=== PATIENT | female | born 1990 | race Caucasian/White ===

== ENCOUNTER 2021-04-22 12:29 | Inpatient (IN) ==
[2021-04-22] MEDS ORDERED: OXYTOCIN 30 UNITS/500 ML BAG IV PRN ×3 (13:26→19:46)
[2021-04-22 14:13] LABS: Hematocrit (blood only) 31.1 % (37-47); Hemoglobin 10.1 g/dL (12.0-16.0); Mean Corpuscular Hemoglobin 29.5 pg (25-34); Mean Corpuscular Hgb Conc 32.5 g/dL (32-36); Mean Corpuscular Volume 90.9 fL (80-100); Mean Platelet Volume 10.5 fL (7.4-10.4); Platelet Count 268 K/uL (130-400); RDW Coefficient of Variation 12.9 % (11.5-14.5); RDW Standard Deviation 42.8 fL (36.4-46.3); Red Blood Count 3.42 M/uL (4.2-5.4); White Blood Count 10.77 K/uL (4.8-10.8)
[2021-04-22] MEDS: LACTATED RINGER'S 1,000 ML IV PRN ×2 (15:40→17:04)
[2021-04-22] MEDS ORDERED: ePHEDrine sulfate 50 MG/ML AMP ONE (15:46)
[2021-04-22] MEDS ORDERED: SODIUM CHLORIDE 0.9% INJ 10 ML VIAL ONE (15:46)
[2021-04-22] MEDS ORDERED: BUPIVACAINE 0.25% 30 ML VIAL ONE (15:47)
[2021-04-22] MEDS ORDERED: fentaNYL citrate 100 MCG/2 ML VIAL ONE (15:47)
[2021-04-22] MEDS ORDERED: fentaNYL 2MCG/ML ROPIVACAINE 1.25MG/ML 100 ML BAG EPI ONE (15:48)
[2021-04-22] MEDS ORDERED: ePHEDrine sulfate 50 MG/ML AMP IV PRN (16:13)
[2021-04-22] MEDS ORDERED: NALOXONE HCL 1 MG in SODIUM CHLORIDE 0.9% 1000ML 1,000 ML IV PRN (16:13)
[2021-04-22] MEDS ORDERED: ONDANSETRON INJ 2 MG/ML 2 ML VIAL IV PRN (16:13)
[2021-04-22] MEDS ORDERED: fentaNYL 2MCG/ML ROPIVACAINE 1.25MG/ML 100 ML BAG EPI PRN (16:13)
[2021-04-22] MEDS ORDERED: NALOXONE HCL 0.4 MG/1 ML VIAL/CARP IV PRN (16:13)
[2021-04-22] MEDS ORDERED: NALBUPHINE HCL INJ 10 MG/ML AMP IV PRN (16:13)
[2021-04-22] MEDS ORDERED: diphenhydrAMINE 50 MG/ML VIAL IV PRN (16:13)
--- NOTE | 2021-04-22 16:14 | Anesthesiology Consultation ---
Date of Service April 22, 2021 Assessment & Plan (1) Encounter for pre-operative examination: Chart Review Chart Review: Patient NOT seen in Pre Admission Testing and Acceptable Risk for Labor Epidural Consults Requested none History Height/Weight Height: 5 ft 3 in Weight: 68.1 kg Allergies Allergy/AdvReac Type Severity Reaction Status Date / Time Sulfa (Sulfonamide Allergy Hives Verified 04/22/21 13:24 Antibiotics) Medications Home Medications Medication Instructions Recorded Confirmed Last Taken acetaminophen 325 mg tablet 325 mg PO QID PRN 04/22/21 04/22/21 2 Days Ago ~04/20/21 [id number] 1 mg 1 tab PO DAILY 04/22/21 04/22/21 04/16/21 21:00 tablet Active Medications Generic Name Dose Route Start Last Admin Trade Name Freq PRN Reason Stop Dose Admin Lactated Ringer's 1,000 mls @ 125 mls/hr 04/22/21 13:26 04/22/21 15:40 Lr IV 04/24/21 13:25 999 mls/hr .Q8H PRN Administration L&D Protocol Protocol Past Medical History Medical History Cardiac murmur Childhood. Reports no issues. Difficult airway for intubation Past Family History Family History Sister Diabetes mellitus type 1 Cancer Mother Family hx of colon cancer Past Surgical History Surgical History History of laparoscopy Ectopic pregnany. Right fallopian tube removed. Past Anesthesia History No Hx of Anesthesia Complications and No Family Hx of Anesthesia Complications History of PONV No Hx of PONV and No Hx of Motion Sickness Social History Smoking Status: Never smoker Hx Alcohol Use: No Hx Substance Use: No Physical Exam Vital Signs Last Vital Signs Temp 37.1 C 04/22/21 12:38 Pulse 79 04/22/21 16:29 Resp 18 04/22/21 12:38 BP 105/55 L 04/22/21 12:40 Pulse Ox 100 04/22/21 16:29 Testing Laboratory Results 04/22/21 13:56
[2021-04-22] MEDS ORDERED: ACETAMINOPHEN W/CODEINE #3 1 TAB PO PRN (19:46)
[2021-04-22] MEDS ORDERED: oxyCODONE/ACETAMINOPHEN 5mg/325mg TAB PO PRN (19:46)
[2021-04-22] MEDS ORDERED: HYDROCORTISONE ACETATE 25 MG SUPP PR PRN (19:46)
[2021-04-22] MEDS ORDERED: bisacodyL 10 MG SUPP PR PRN (19:46)
[2021-04-22] MEDS ORDERED: SUPERCREAM 0.870% 15 GM JAR EXT PRN (19:46)
[2021-04-22] MEDS ORDERED: DIPHTHERIA/TETANUS/PERTUSSIS 0.5 ML SYR/VIAL IM ONE (19:46)
[2021-04-22] MEDS ORDERED: BENZOCAINE 20% AER SPR 82.5 GM CAN EXT PRN (19:46)
--- NOTE | 2021-04-22 20:17 | Anesthesiology Progress Note ---
Date of Service April 22, 2021 Anesthesia Post Procedure Vital Signs Vital Signs: Temp Pulse Resp BP Pulse Ox 04/22/21 20:14 61 100 04/22/21 20:09 66 98 04/22/21 20:04 59 L 99 04/22/21 19:59 74 99 04/22/21 19:54 66 99 04/22/21 19:49 61 100 04/22/21 19:44 68 97 04/22/21 19:39 61 98 04/22/21 19:34 74 99 04/22/21 19:33 20 04/22/21 19:30 79 85 L 04/22/21 19:29 77 100 04/22/21 19:24 80 100 04/22/21 19:19 78 100 04/22/21 19:14 72 99 04/22/21 19:09 58 L 100 04/22/21 19:04 70 99 04/22/21 18:59 67 99 04/22/21 18:55 75 113/80 04/22/21 18:54 69 97 04/22/21 18:49 64 99 04/22/21 18:44 73 97 04/22/21 18:39 71 97 04/22/21 18:34 69 98 04/22/21 18:29 71 98 04/22/21 18:24 68 98 04/22/21 18:19 66 97 04/22/21 18:14 75 98 04/22/21 18:09 74 98 04/22/21 18:04 66 96 04/22/21 17:59 69 98 04/22/21 17:58 36.6 C 16 108/72 04/22/21 17:54 74 98 04/22/21 17:49 67 99 04/22/21 17:44 61 98 04/22/21 17:39 63 99 04/22/21 17:34 71 98 04/22/21 17:29 71 98 04/22/21 17:24 65 113/67 98 04/22/21 17:19 74 98 04/22/21 17:17 79 92 04/22/21 17:14 66 97 04/22/21 17:09 80 98 04/22/21 17:04 80 98 04/22/21 16:59 76 98 04/22/21 16:54 76 98 04/22/21 16:51 36.7 C 78 18 110/62 97 04/22/21 16:49 80 97 04/22/21 16:44 73 98 04/22/21 16:43 65 98/54 L 04/22/21 16:42 74 95/58 L 04/22/21 16:39 72 99 04/22/21 16:37 71 111/57 L 04/22/21 16:35 64 107/59 L 04/22/21 16:34 71 100 04/22/21 16:29 79 100 04/22/21 16:24 74 100 04/22/21 16:19 84 100 04/22/21 16:14 66 100 04/22/21 16:09 64 100 04/22/21 12:40 75 105/55 L 04/22/21 12:38 37.1 C 18 Pain Intensity Pelvic: Pain Intensity: 2 Transfer of Care Handoff Completed per policy Notes Mental Status: alert / awake / arousable and participated in evaluation Patient Amnestic to Procedure: Yes Nausea / Vomiting: adequately controlled Pain: adequately controlled Airway Patency, RR, SpO2: stable & adequate BP & HR: stable & adequate Hydration State: stable & adequate Anesthetic Complications: no major complications apparent and Pt Satisfied with anesthetic care
[2021-04-22] MEDS: DOCUSATE SODIUM 100 MG CAP PO SCH (21:11)
[2021-04-22] MEDS: IBUPROFEN 600 MG TAB PO PRN (21:11)
[2021-04-22] MEDS: ACETAMINOPHEN 325 MG TAB PO PRN (23:06)
[2021-04-23] MEDS: IBUPROFEN 600 MG TAB PO PRN ×3 (06:00→20:11)
--- NOTE | 2021-04-23 06:21 | Operative Report (OR) ---
DELIVERY NOTE She is 5, para 3, blood type A positive, had a history of a shortened cervix with early dilat ation, was given Celestone shots at about 28 weeks' gestation and then was followed carefully in the office, was told to call immediately. Her prior exam a week ago, she was about 2+ cm. Head was well applied to the cervix. The cervix was completely effaced. She called stating that she started feel ing uncomfortable and had sporadic contractions throughout the night. She was told to come to the of [facility]. When she arrived at the office, she was 4-5 cm dilated, the head was about -1 station. She wa s eventually sent to maternity. She started into labor on her own. She got to about 6 cm. She requ ested and received epidural anesthesia. After epidural anesthesia was administered, membranes were r uptured surgically. Fluid was clear. She was augmented with IV Pitocin. She went to full dilatatio n. With about 3 pushes, she pushed out a live male infant via direct occiput anterior position over an intact perineum. was suctioned through the mouth and the nose. Baby was delivered without difficulty. Cord was allowed to pulse for 1 minute, then clamped, cut by the father. Cord blood wa s taken. With IV Pitocin running, the placenta was removed intact. Perineum was intact. There was a small bleeding laceration of the left labia minora and this was repaired with a running 3-0 chromic . Following this, vaginal examination revealed no hematoma formation or sponges in the vagina. Rosetta mated blood loss 100 mL. Job ID: [id number]
[2021-04-23 06:30] LABS: Hematocrit (blood only) 28.7 % (37-47); Hemoglobin 9.5 g/dL (12.0-16.0); Mean Corpuscular Hemoglobin 29.8 pg (25-34); Mean Corpuscular Hgb Conc 33.1 g/dL (32-36); Mean Platelet Volume 10.8 fL (7.4-10.4); Platelet Count 227 K/uL (130-400); RDW Coefficient of Variation 12.8 % (11.5-14.5); RDW Standard Deviation 41.9 fL (36.4-46.3); Red Blood Count 3.19 M/uL (4.2-5.4)
--- NOTE | 2021-04-23 08:21 | Obstetrical Progress Note ---
Date of Service April 23, 2021 Assessment & Plan Admission and Anticipated Discharge Date Admission Date: April 22, 2021 Subjective abdomen soft and non tender no calf tenderness ambulating well vaginal bleeding scant hgb9.5 Results & Data ([facility]) Vital Signs (Past 12 Hours) Vital Signs Temp Pulse Pulse Resp BP BP Pulse Ox 04/23/21 07:12 36.5 C 68 20 117/72 98 04/23/21 03:06 36.4 C L 70 18 126/72 04/22/21 23:20 36.4 C L 73 18 126/73 04/22/21 22:00 36.8 C 56 L 20 122/75 04/22/21 21:45 36.8 C 18 04/22/21 21:44 56 L 122/75 04/22/21 21:29 60 119/74 04/22/21 21:15 71 18 108/52 L 04/22/21 21:04 65 100 04/22/21 21:00 131/69 04/22/21 20:59 58 L 99 04/22/21 20:58 54 L 132/72 04/22/21 20:49 74 98 04/22/21 20:45 16 135/70 04/22/21 20:44 60 100 04/22/21 20:39 51 L 100 04/22/21 20:34 52 L 98 04/22/21 20:30 18 125/65 04/22/21 20:29 66 99 04/22/21 20:24 58 L 98
[2021-04-23] MEDS: DOCUSATE SODIUM 100 MG CAP PO SCH ×2 (08:28→20:11)
[2021-04-23] MEDS: ACETAMINOPHEN 325 MG TAB PO PRN (08:28)
[2021-04-23] MEDS: PRENATAL VITAMIN 1 TAB PO SCH (08:28)
[2021-04-23] MEDS ORDERED: bisacodyL 5 MG TABEC PO SCH (20:00)
[2021-04-24] MEDS: IBUPROFEN 600 MG TAB PO PRN ×3 (02:44→13:21)
[2021-04-24 06:11] LABS: Hematocrit (blood only) 27.7 % (37-47)
--- NOTE | 2021-04-24 07:24 | Obstetrical Progress Note ---
Date of Service April 24, 2021 Assessment & Plan Admission and Anticipated Discharge Date Admission Date: April 22, 2021 Subjective abdomen soft and non tender no calf tenderness ambulating well vaginal bleeding scant hgb 9.0 Results & Data ([facility]) Vital Signs (Past 12 Hours) Vital Signs Temp Pulse Resp BP 04/24/21 00:00 36.7 C 76 18 118/70 04/23/21 20:15 36.3 C L 73 18 143/70 H
[2021-04-24] MEDS: PRENATAL VITAMIN 1 TAB PO SCH (08:35)
[2021-04-24] MEDS: DOCUSATE SODIUM 100 MG CAP PO SCH (08:35)
== END 2021-04-24 14:17 | disposition home or self-care (01) | DRG 807 ==
LOC: 4S1 12:29 → 4S2 22:16